=== PATIENT | male | born 1935 | race Caucasian/White ===

== ENCOUNTER 2017-07-09 23:44 | Inpatient (IN) | payer OTHER ==
[2017-07-10 00:32] LABS: ADD MAN DIFF? NO
[2017-07-10 00:43] LABS: BASOPHIL # 0.1 10^3/ul (0.0-0.1); BASOPHILS % 1.1 % (0.0-2.0); EOSINOPHILS # 0.2 10^3/ul (0.0-0.5); EOSINOPHILS % 2.8 % (0.0-7.0); HEMATOCRIT 40.9 % (42.0-52.0); HEMOGLOBIN 14.2 g/dl (14.0-18.0); LYMPHOCYTES # 1.7 10^3/ul (0.8-2.9); LYMPHOCYTES % 22.4 % (15.0-51.0); MEAN CORPUSCULAR HEMOGLOBIN 32.9 pg (29.0-33.0); MEAN CORPUSCULAR HGB CONC 34.7 g/dl (32.0-37.0); MEAN CORPUSCULAR VOLUME 94.9 fl (82.0-101.0); MEAN PLATELET VOLUME 11.6 fl (7.4-10.4); MONOCYTE # 0.6 10^3/ul (0.3-0.9); NEUTROPHIL # 4.8 10^3/ul (1.6-7.5); NEUTROPHILS % 65.3 % (39.0-77.0); PLATELET COUNT 202 10^3/UL (140-415); RED BLOOD COUNT 4.31 10^6/ul (4.70-6.10)
[2017-07-10 00:43] LABS: WHITE BLOOD COUNT 7.4 10^3/ul (4.8-10.8)
[2017-07-10 00:59] LABS: INR 2.31
[2017-07-10 01:02] LABS: ALANINE AMINOTRANSFERASE 23 IU/L (13-69); ALBUMIN 4.5 g/dl (3.3-4.9); ALBUMIN/GLOBULIN RATIO 1.36; ALKALINE PHOSPHATASE 75 IU/L (42-121); ANION GAP 17 (8-16); ASPARTATE AMINO TRANSFERASE 24 IU/L (15-46); BILIRUBIN,INDIRECT 0.2 mg/dl (0-1.1); BILIRUBIN,TOTAL 0.2 mg/dl (0.2-1.3); BLOOD UREA NITROGEN 13 mg/dl (7-20); CALCIUM 9.1 mg/dl (8.4-10.2); CARBON DIOXIDE 25 mmol/L (21-31); CHLORIDE 106 mmol/L (97-110); CREATININE 0.97 mg/dl (0.61-1.24); GLUCOSE 129 mg/dl (70-220); POTASSIUM 3.9 mmol/L (3.5-5.1); SODIUM 144 mmol/L (135-144); TOTAL PROTEIN 7.8 g/dl (6.1-8.1)
[2017-07-10 01:13] LABS: B-TYPE NATRIURETIC PEPTIDE 321 PG/ML (0-450)
[2017-07-10 01:14] LABS: TROPONIN-I < 0.012 ng/ml (0.00-0.12)
[2017-07-10] MEDS: FUROSEMIDE 40 MG INJ IV (01:51)
[2017-07-10] MEDS ORDERED: ONDANSETRON 4 MG INJ IV (05:30)
[2017-07-10] MEDS ORDERED: morphine 2 MG INJ IV (05:30)
[2017-07-10] MEDS ORDERED: NITROGLYCERIN (SL) 0.4 MG TAB SL (05:30)
[2017-07-10] MEDS ORDERED: ACETAMINOPHEN 325 MG TAB PO (05:30)
[2017-07-10] MEDS ORDERED: ALBUTEROL/IPRATROPIUM (NEB) 3 ML AMP HHN (05:30)
[2017-07-10] MEDS ORDERED: NACL 0.9% 3 ML SYG IV (05:30)
[2017-07-10] MEDS: FUROSEMIDE 20 MG INJ IV ×2 (09:59→17:25)
[2017-07-10] MEDS: ENOXAPARIN 40 MG/0.4 ML SYG SC (09:59)
[2017-07-10 14:42] LABS: CREATINE KINASE 130 IU/L (23-200)
[2017-07-10 15:05] LABS: TROPONIN-I < 0.012 ng/ml (0.00-0.12)
[2017-07-10 15:06] LABS: CK-MB 1.34 ng/ml (0.0-2.4)
[2017-07-10] MEDS: hydrALAzine 20 MG INJ IV (16:09)
[2017-07-10] MEDS: POTASSIUM CHLORIDE (SR) 20 MEQ TAB PO (17:24)
[2017-07-10] MEDS: LEVOTHYROXINE 88 MCG TAB PO (17:24)
[2017-07-10] MEDS: WARFARIN 2.5 MG TAB NGT (17:36)
[2017-07-10] MEDS: ENALAPRILAT 1.25 MG INJ IV (18:41)
[2017-07-10] MEDS: OXYBUTYNIN 5 MG TAB PO (20:15)
[2017-07-10] MEDS: ALLOPURINOL 100 MG TAB PO (20:15)
[2017-07-10] MEDS: RANITIDINE 150 MG TAB PO (20:15)
[2017-07-10] MEDS: TAMSULOSIN (SR) 0.4 MG CAP PO (20:15)
[2017-07-11] MEDS: FUROSEMIDE 20 MG INJ IV ×2 (05:27→17:12)
[2017-07-11] MEDS: LEVOTHYROXINE 88 MCG TAB PO (06:18)
[2017-07-11 06:24] LABS: ADD MAN DIFF? NO
[2017-07-11 06:27] LABS: WHITE BLOOD COUNT 6.7 10^3/ul (4.8-10.8)
[2017-07-11 06:28] LABS: BASOPHIL # 0.1 10^3/ul (0.0-0.1); BASOPHILS % 1.4 % (0.0-2.0); EOSINOPHILS # 0.2 10^3/ul (0.0-0.5); EOSINOPHILS % 3.3 % (0.0-7.0); HEMATOCRIT 46.6 % (42.0-52.0); HEMOGLOBIN 16.3 g/dl (14.0-18.0); LYMPHOCYTES # 1.4 10^3/ul (0.8-2.9); LYMPHOCYTES % 21.5 % (15.0-51.0); MEAN CORPUSCULAR HEMOGLOBIN 33.4 pg (29.0-33.0); MEAN CORPUSCULAR VOLUME 95.5 fl (82.0-101.0); MEAN PLATELET VOLUME 11.7 fl (7.4-10.4); MONOCYTE # 0.6 10^3/ul (0.3-0.9); MONOCYTES % 8.9 % (0.0-11.0); NEUTROPHIL # 4.3 10^3/ul (1.6-7.5); NEUTROPHILS % 64.6 % (39.0-77.0); PLATELET COUNT 211 10^3/UL (140-415); RED BLOOD COUNT 4.88 10^6/ul (4.70-6.10); RED CELL DISTRIBUTION WIDTH 13.8 % (11.5-14.5)
[2017-07-11 06:56] LABS: INR 2.32; PROTIME 26.1 Sec (11.9-14.9)
[2017-07-11 07:41] LABS: HEMOGLOBIN A1C 5.9 % (0-5.9)
[2017-07-11 07:47] LABS: ALANINE AMINOTRANSFERASE 28 IU/L (13-69); ALBUMIN 4.5 g/dl (3.3-4.9); ALBUMIN/GLOBULIN RATIO 1.15; ALKALINE PHOSPHATASE 69 IU/L (42-121); ANION GAP 19 (8-16); ASPARTATE AMINO TRANSFERASE 26 IU/L (15-46); BLOOD UREA NITROGEN 16 mg/dl (7-20); CALCIUM 9.3 mg/dl (8.4-10.2); CARBON DIOXIDE 27 mmol/L (21-31); CHLORIDE 105 mmol/L (97-110); CHOL/HDL RATIO 4.1 RATIO; CHOLESTEROL 169 mg/dl (100-200); CREATININE 1.17 mg/dl (0.61-1.24); GLUCOSE 114 mg/dl (70-220); HDL CHOLESTEROL 41 mg/dl (31-75); LDL CHOLESTEROL,CALCULATED 102 mg/dl; MAGNESIUM 2.2 mg/dl (1.7-2.5); POTASSIUM 3.9 mmol/L (3.5-5.1); SODIUM 147 mmol/L (135-144); TOTAL PROTEIN 8.4 g/dl (6.1-8.1); TRIGLYCERIDES 128 mg/dl (0-149)
[2017-07-11] MEDS ORDERED: WARFARIN 2.5 MG TAB PO (09:00)
[2017-07-11] MEDS: POTASSIUM CHLORIDE (SR) 20 MEQ TAB PO (09:11)
[2017-07-11] MEDS: hydrALAzine 20 MG INJ IV (09:12)
[2017-07-11] MEDS: ALLOPURINOL 100 MG TAB PO ×2 (09:12→20:27)
[2017-07-11] MEDS: OXYBUTYNIN 5 MG TAB PO ×2 (09:12→20:27)
[2017-07-11] MEDS: WARFARIN 2.5 MG TAB NGT (17:11)
[2017-07-11] MEDS: RANITIDINE 150 MG TAB PO (20:27)
[2017-07-11] MEDS: TAMSULOSIN (SR) 0.4 MG CAP PO (20:27)
[2017-07-12] MEDS: FUROSEMIDE 20 MG INJ IV ×2 (04:43→17:38)
[2017-07-12] MEDS: hydrALAzine 20 MG INJ IV ×2 (05:39→08:32)
[2017-07-12] MEDS: LEVOTHYROXINE 88 MCG TAB PO (06:33)
[2017-07-12] MEDS: POTASSIUM CHLORIDE (SR) 20 MEQ TAB PO (08:29)
[2017-07-12] MEDS: OXYBUTYNIN 5 MG TAB PO ×2 (08:31→20:47)
[2017-07-12] MEDS: ALLOPURINOL 100 MG TAB PO ×2 (08:31→20:47)
[2017-07-12 12:35] LABS: ADD MAN DIFF? NO
[2017-07-12 12:38] LABS: BASOPHIL # 0.1 10^3/ul (0.0-0.1); BASOPHILS % 0.8 % (0.0-2.0); EOSINOPHILS # 0.2 10^3/ul (0.0-0.5); EOSINOPHILS % 2.1 % (0.0-7.0); HEMATOCRIT 47.5 % (42.0-52.0); HEMOGLOBIN 16.7 g/dl (14.0-18.0); LYMPHOCYTES # 1.2 10^3/ul (0.8-2.9); LYMPHOCYTES % 11.5 % (15.0-51.0); MEAN CORPUSCULAR HEMOGLOBIN 33.1 pg (29.0-33.0); MEAN CORPUSCULAR HGB CONC 35.2 g/dl (32.0-37.0); MEAN CORPUSCULAR VOLUME 94.1 fl (82.0-101.0); MEAN PLATELET VOLUME 11.2 fl (7.4-10.4); MONOCYTE # 0.7 10^3/ul (0.3-0.9); NEUTROPHIL # 8.1 10^3/ul (1.6-7.5); NEUTROPHILS % 78.3 % (39.0-77.0); PLATELET COUNT 222 10^3/UL (140-415); RED BLOOD COUNT 5.05 10^6/ul (4.70-6.10); RED CELL DISTRIBUTION WIDTH 14.2 % (11.5-14.5)
[2017-07-12 12:38] LABS: WHITE BLOOD COUNT 10.3 10^3/ul (4.8-10.8)
[2017-07-12 12:58] LABS: ANION GAP 20 (8-16); BLOOD UREA NITROGEN 19 mg/dl (7-20); CALCIUM 9.3 mg/dl (8.4-10.2); CARBON DIOXIDE 25 mmol/L (21-31); CHLORIDE 105 mmol/L (97-110); CREATININE 1.04 mg/dl (0.61-1.24); GLUCOSE 107 mg/dl (70-220); SODIUM 146 mmol/L (135-144)
[2017-07-12 13:32] LABS: MAGNESIUM 2.1 mg/dl (1.7-2.5)
[2017-07-12 13:32] LABS: PHOSPHORUS 3.3 mg/dl (2.5-4.9)
[2017-07-12] MEDS: WARFARIN 2.5 MG TAB NGT (17:38)
[2017-07-12] MEDS: ATORVASTATIN 10 MG TAB PO (20:47)
[2017-07-12] MEDS: TAMSULOSIN (SR) 0.4 MG CAP PO (20:47)
[2017-07-12] MEDS: RANITIDINE 150 MG TAB PO (20:47)
[2017-07-13] MEDS: FUROSEMIDE 20 MG INJ IV (06:40)
[2017-07-13] MEDS: LEVOTHYROXINE 88 MCG TAB PO (06:40)
[2017-07-13 08:58] LABS: ADD MAN DIFF? NO
[2017-07-13 08:59] LABS: BASOPHIL # 0.1 10^3/ul (0.0-0.1); EOSINOPHILS # 0.3 10^3/ul (0.0-0.5); EOSINOPHILS % 3.3 % (0.0-7.0); HEMOGLOBIN 16.2 g/dl (14.0-18.0); LYMPHOCYTES # 1.3 10^3/ul (0.8-2.9); LYMPHOCYTES % 16.2 % (15.0-51.0); MEAN CORPUSCULAR HEMOGLOBIN 32.4 pg (29.0-33.0); MEAN CORPUSCULAR HGB CONC 33.8 g/dl (32.0-37.0); MEAN PLATELET VOLUME 11.9 fl (7.4-10.4); MONOCYTE # 0.8 10^3/ul (0.3-0.9); MONOCYTES % 9.9 % (0.0-11.0); NEUTROPHIL # 5.5 10^3/ul (1.6-7.5); NEUTROPHILS % 69.3 % (39.0-77.0); PLATELET COUNT 211 10^3/UL (140-415); RED CELL DISTRIBUTION WIDTH 14.2 % (11.5-14.5)
[2017-07-13] MEDS: POTASSIUM CHLORIDE (SR) 20 MEQ TAB PO (09:16)
[2017-07-13] MEDS: OXYBUTYNIN 5 MG TAB PO ×2 (09:17→21:14)
[2017-07-13] MEDS: ALLOPURINOL 100 MG TAB PO ×2 (09:17→21:14)
[2017-07-13] MEDS: LISINOPRIL 20 MG TAB PO (09:17)
[2017-07-13 09:26] LABS: ANION GAP 19 (8-16); BLOOD UREA NITROGEN 28 mg/dl (7-20); CALCIUM 9.2 mg/dl (8.4-10.2); CARBON DIOXIDE 27 mmol/L (21-31); CHLORIDE 104 mmol/L (97-110); CREATININE 1.26 mg/dl (0.61-1.24); GLUCOSE 96 mg/dl (70-220); POTASSIUM 4.4 mmol/L (3.5-5.1); SODIUM 146 mmol/L (135-144)
[2017-07-13 09:30] LABS: INR 2.63; PROTIME 28.8 Sec (11.9-14.9); PT RATIO 2.3
[2017-07-13] MEDS: METOPROLOL (XL) 25 MG TAB PO (14:00)
[2017-07-13] MEDS: WARFARIN 2.5 MG TAB NGT (16:49)
[2017-07-13] MEDS: RANITIDINE 150 MG TAB PO (21:14)
[2017-07-13] MEDS: ATORVASTATIN 10 MG TAB PO (21:14)
[2017-07-13] MEDS: TAMSULOSIN (SR) 0.4 MG CAP PO (21:14)
[2017-07-14] MEDS: LEVOTHYROXINE 88 MCG TAB PO ×2 (06:20→09:55)
[2017-07-14 08:06] LABS: INR 2.88; PT RATIO 2.4
[2017-07-14 08:26] LABS: ALBUMIN 4.8 g/dl (3.3-4.9); ANION GAP 19 (8-16); BLOOD UREA NITROGEN 25 mg/dl (7-20); CALCIUM 9.3 mg/dl (8.4-10.2); CARBON DIOXIDE 26 mmol/L (21-31); CHLORIDE 104 mmol/L (97-110); CREATININE 1.17 mg/dl (0.61-1.24); GLUCOSE 116 mg/dl (70-220); MAGNESIUM 2.2 mg/dl (1.7-2.5); PHOSPHORUS 3.2 mg/dl (2.5-4.9); POTASSIUM 4.5 mmol/L (3.5-5.1); SODIUM 144 mmol/L (135-144)
[2017-07-14] MEDS: FUROSEMIDE 40 MG TAB PO (09:55)
[2017-07-14] MEDS: LISINOPRIL 20 MG TAB PO (09:56)
[2017-07-14] MEDS: METOPROLOL (XL) 25 MG TAB PO (09:56)
[2017-07-14] MEDS: ALLOPURINOL 100 MG TAB PO (09:56)
[2017-07-14] MEDS: OXYBUTYNIN 5 MG TAB PO (09:57)
[2017-07-14] MEDS: POTASSIUM CHLORIDE (SR) 20 MEQ TAB PO (09:57)
== END 2017-07-14 16:32 | disposition home health service (06) | DRG 308 ==
LOC: E/R 23:44 → MS4 07-11 18:40
DX: I48.92 Unspecified atrial flutter (principal); I50.33 Acute on chronic diastolic (congestive) heart failure; J44.9 Chronic obstructive pulmonary disease, unspecified; I48.91 Unspecified atrial fibrillation; R00.1 Bradycardia, unspecified; I11.0 Hypertensive heart disease with heart failure; E78.5 Hyperlipidemia, unspecified; G47.33 Obstructive sleep apnea (adult) (pediatric)
CPT/HCPCS: 36415; 71045; 73060; 80048; 80053; 80061; 80069; 82550; 82553; 83036; 83735; 83880; 84100; 84443; 84484; 85025; 85610; 85730; 93005; 93306; 96372; 96374; 96376; 97161; 99285-25; J1940